=== PATIENT | female | born 1965 | race Caucasian/White ===

== ENCOUNTER 2017-12-18 17:25 | Observation (INO) | payer OTHER ==
[~2017-12-18] VITALS: Ht 167.6 cm; Wt 63.9 kg
[2017-12-18] MEDS ORDERED: IOHEXOL 350 MG/ML 10 ML VIAL (for RAD DIAG) IVCONTRAST ONE (17:26)
[2017-12-18 17:35] VITALS: BP 112/59; PULSE 68; RESP 18; TEMP 98.2; O2SAT 100
[2017-12-18] MEDS ORDERED: LEVO25TA4 PO (17:53)
[2017-12-18 18:23] LABS: AUTOMATED NEUTROPHIL # 3.5 TH/MM3 (1.8-7.7); BASOPHIL # 0.1 TH/MM3 (0-0.2); BASOPHIL % 1.1 % (0.0-2.0); EOSINOPHIL # 0.3 TH/MM3 (0-0.4); EOSINOPHIL % 4.9 % (0.0-4.0); HEMATOCRIT 36.2 % (35.0-46.0); HEMOGLOBIN 12.7 GM/DL (11.6-15.3); LYMPH % 33.3 % (9.0-44.0); LYMPHOCYTE # 2.3 TH/MM3 (1.0-4.8); MEAN CELL VOLUME 90.4 FL (80.0-100.0); MEAN CORPUSCULAR HEMOGLOBIN 31.7 PG (27.0-34.0); MEAN CORPUSCULAR HGB CONC 35.1 % (32.0-36.0); MEAN PLATELET VOLUME 8.4 FL (7.0-11.0); MONO % 8.4 % (0.0-8.0); MONOCYTE # 0.6 TH/MM3 (0-0.9); NEUT % 52.3 % (16.0-70.0); PLATELET COUNT 260 TH/MM3 (150-450); RED BLOOD COUNT 4.01 MIL/MM3 (4.00-5.30); RED CELL DISTRIBUTION WIDTH 12.2 % (11.6-17.2); WHITE BLOOD COUNT 6.8 TH/MM3 (4.0-11.0)
[2017-12-18 18:39] LABS: CHLORIDE 105 MEQ/L (98-107); SODIUM (NA) 140 MEQ/L (136-145)
[2017-12-18 18:40] VITALS: BP 103/54; PULSE 77; RESP 14; O2SAT 100
[2017-12-18 18:42] LABS: CALCIUM 9.2 MG/DL (8.5-10.1)
[2017-12-18 18:43] LABS: ALBUMIN 4.3 GM/DL (3.4-5.0); BLOOD UREA NITROGEN 11 MG/DL (7-18); GLUCOSE,RANDOM 87 MG/DL (74-106)
[2017-12-18 18:46] LABS: ALT (GPT) 19 U/L (10-53); AST (GOT) 16 U/L (15-37); CREATININE 0.66 MG/DL (0.50-1.00); GLOMERULAR FILTRATION RATE 93 ML/MIN (>89)
[2017-12-18 18:47] LABS: TOTAL BILIRUBIN ADULT 0.4 MG/DL (0.2-1.0); TOTAL PROTEIN 7.9 GM/DL (6.4-8.2)
[2017-12-18 18:49] LABS: ALKALINE PHOSPHATASE 80 U/L (45-117)
[2017-12-18 19:09] VITALS: BP 109/58; PULSE 81; RESP 18; O2SAT 100
--- NOTE | 2017-12-18 19:23 | RADRPT ---
EXAM DATE: 12/18/2017 7:05 PM EDT AGE/SEX: 52 years / Female INDICATIONS: Altered mental status. Short term memory loss. CLINICAL DATA: This is the patient's initial encounter. Patient reports that signs and symptoms have been present for 1 day and indicates a pain score of 0/10. MEDICAL/SURGICAL HISTORY: None. Appendectomy. Hernia repair. RADIATION DOSE: 51.84 CTDI (mGy) COMPARISON: No prior exams available for comparison. TECHNIQUE: CT of the head without contrast. Using automated exposure control and adjustment of the mA and/or kV according to patient size, radiation dose was kept as low as reasonably achievable to ob tain optimal diagnostic quality images. FINDINGS: Cerebrum: The ventricles are normal for age. No evidence of midline shift, mass lesion, hemorrhage or acute infarction. No extraaxial fluid collections are seen. Posterior Fossa: The cerebellum and brainstem are intact. The 4th ventricle is midline. The cerebe llopontine angle is unremarkable. Extracranial: The visualized portion of the orbits is intact. Skull: The calvaria is intact. No evidence of skull fracture. CONCLUSION: 1. No acute intracranial abnormalities. Electronically signed by: Charles Rothman MD 12/18/2017 7:22 PM EDT
[2017-12-18] MEDS ORDERED: ACETAMINOPHEN 500 MG CPLT PO ONE (19:30)
--- NOTE | 2017-12-18 19:45 | PD ---
HPI Chief Complaint: Neuro Symptoms/ Deficits Time Seen by Provider: 17:44 Travel History International Travel<30 days: No Contact w/Intl Traveler<30days: No Traveled to known affect area: No History of Present Illness HPI This is a 52-year-old female who presents to the emergency department having gotten out of the shower 45 minutes ago when she did not know where she was and had memory problems. She kept asking her over and over where she was and she did not remember what they had done earlier today. She has no weakness , numbness or difficulty with her speech. Nothing like this is never happened to her before. Her reports that she was complaining of a headache yesterday but not today. She has no history of psychiatric disease. Her only medical problem is hypothyroidism. [facility] Past Medical History Diminished Hearing: No Thyroid Disease: Yes Tetanus Vaccination: Unknown Influenza Vaccination: No ?: Not Past Surgical History Abdominal Surgery: Yes (hernia) Appendectomy: Yes Social History Alcohol Use: Yes (soc) Tobacco Use: No Substance Use: No Allergies-Medications (Allergen,Severity, Reaction): Coded Allergies: Penicillins (Verified Allergy, Severe, hives, 12/18/17) Reported Meds & Prescriptions Reported Meds & Active Scripts Active Reported Levothyroxine (Levothyroxine Sodium) 25 Mcg Tab 25 Mcg PO DAILY Review of Systems Except as stated in HPI: all other systems reviewed are Neg Physical Exam Narrative GENERAL:Well appearing, no acute distress SKIN: Focused skin assessment warm and dry. HEAD: Atraumatic. Normocephalic. EYES: Pupils equal and round. No injection or drainage. ENT: Moist mucous membranes NECK: Trachea midline. CARDIOVASCULAR: Regular rate and rhythm. No murmur appreciated. RESPIRATORY: Clear to auscultation. Breath sounds equal bilaterally. GASTROINTESTINAL: Abdomen soft, non-tender, nondistended. MUSCULOSKELETAL: No obvious deformities. NEUROLOGICAL: Awake and alert. No obvious cranial nerve deficits. No dysarthria or aphasia. No upper or lower extremity drift. No upper extremity ataxia. Visual douglas intact. Repetitive questioning. PSYCHIATRIC: Tearful Data Data Last Documented VS Vital Signs Date Time Temp Pulse Resp B/P (MAP) Pulse Ox O2 Delivery O2 Flow Rate FiO2 12/18/17 20:34 18 12/18/17 20:15 79 111/54 (73) 97 Room Air 12/18/17 17:35 98.2 Orders Orders Complete Blood Count With Diff (12/18/17 17:44) Comprehensive Metabolic Panel (12/18/17 17:44) Ct Brain W/O Iv Contrast(Rout) (12/18/17 ) Cta Brain W Iv Contrast W 3d (12/18/17 ) Cta Neck W Iv Contrast W 3d (12/18/17 ) ^ Insert Iv (12/18/17 17:44) Acetaminophen (Tylenol) (12/18/17 19:30) Iohexol 350 Inj (Omnipaque 350 Inj) (12/18/17 17:26) Admit Order (Ed Use Only) (12/18/17 20:35) Labs Laboratory Tests Test 12/18/17 18:05 White Blood Count 6.8 TH/MM3 Red Blood Count 4.01 MIL/MM3 Hemoglobin 12.7 GM/DL Hematocrit 36.2 % Mean Corpuscular Volume 90.4 FL Mean Corpuscular Hemoglobin 31.7 PG Mean Corpuscular Hemoglobin Concent 35.1 % Red Cell Distribution Width 12.2 % Platelet Count 260 TH/MM3 Mean Platelet Volume 8.4 FL Neutrophils (%) (Auto) 52.3 % Lymphocytes (%) (Auto) 33.3 % Monocytes (%) (Auto) 8.4 % Eosinophils (%) (Auto) 4.9 % Basophils (%) (Auto) 1.1 % Neutrophils # (Auto) 3.5 TH/MM3 Lymphocytes # (Auto) 2.3 TH/MM3 Monocytes # (Auto) 0.6 TH/MM3 Eosinophils # (Auto) 0.3 TH/MM3 Basophils # (Auto) 0.1 TH/MM3 CBC Comment DIFF FINAL Differential Comment Blood Urea Nitrogen 11 MG/DL Creatinine 0.66 MG/DL Random Glucose 87 MG/DL Total Protein 7.9 GM/DL Albumin 4.3 GM/DL Calcium Level 9.2 MG/DL Alkaline Phosphatase 80 U/L Aspartate Amino Transf (AST/SGOT) 16 U/L Alanine Aminotransferase (ALT/SGPT) 19 U/L Total Bilirubin 0.4 MG/DL Sodium Level 140 MEQ/L Potassium Level 3.4 MEQ/L Chloride Level 105 MEQ/L Carbon Dioxide Level 26.0 MEQ/L Anion Gap 9 MEQ/L Estimat Glomerular Filtration Rate 93 ML/MIN MDM Medical Decision Making Medical Screen Exam Complete: Yes Emergency Medical Condition: Yes Interpretation(s) EKG: Normal sinus rhythm, no ST changes No leukocytosis Mild hypokalemia Last 24 hours Impressions Neck CTA 12/18/17 0000 Signed Impressions: CONCLUSION: 1. Negative CTA carotids. Head CTA 12/18/17 0000 Signed Impressions: CONCLUSION: 1. Negative CTA brain. Head CT 12/18/17 0000 Signed Impressions: CONCLUSION: 1. No acute intracranial abnormalities. Differential Diagnosis Transient global amnesia, stroke, seizure, tumor Narrative Course This is a 52-year-old female who presents to the emergency department with anterograde amnesia that started 45 minutes prior to arrival. She has no other neurologic symptoms and she has a normal neurologic exam. She was placed in a monitor and an IV was established. Labs were obtained which were reassuring. CT and CTA were performed which was unremarkable. Patient continues to be very symptomatic in the emergency department. I did discuss the case with the neurologist who suggested if the patient's symptoms improve she could be discharged home however given the severity of her symptoms I think she requires observation. I suspect this is transient global amnesia and anticipate she should have improvement in the next 24 hours. Diagnosis Primary Impression: Transient global amnesia Admitting Information Admitting Physician Requests: Observation Nishi Darnell MD Dec 18, 2017 19:45
--- NOTE | 2017-12-18 19:52 | RADRPT ---
EXAM DATE: 12/18/2017 7:28 PM EDT AGE/SEX: 52 years / Female INDICATIONS: Altered mental status. Short term memory loss. Evaluate for occlusion. CLINICAL DATA: This is the patient's initial encounter. Patient reports that signs and symptoms have been present for 1 day and indicates a pain score of 0/10. MEDICAL/SURGICAL HISTORY: None. Appendectomy. Hernia repair. RADIATION DOSE: 42.21 CTDI (mGy) ; Combined studies COMPARISON: No prior exams available for comparison. TECHNIQUE: Volumetric scanning was performed using a multi-row detector CT scanner during bolus infu hillary of 100 ml Omnipaque 350 (iohexol) nonionic water-soluble contrast as a cumulative dose for mult iple exams. The data was post processed with a variety of visualization algorithms including full v olume maximum intensity projection, multi-planar sliding thin slab reformation, curved planar reforma tion, and surface rendering techniques. Using automated exposure control and adjustment of the mA an d/or kV according to patient size, radiation dose was kept as low as reasonably achievable to obtain optimal diagnostic quality images. FINDINGS: No stenotic or occlusive disease identified in the anterior, middle and posterior cerebral arteries. The distal basilar and internal carotid arteries are patent. CONCLUSION: 1. Negative CTA brain. Electronically signed by: Charles Rothman MD 12/18/2017 7:51 PM EDT
--- NOTE | 2017-12-18 19:54 | RADRPT ---
EXAM DATE: 12/18/2017 7:36 PM EDT AGE/SEX: 52 years / Female INDICATIONS: Altered mental status. Short term memory loss. Evaluate for occlusion. CLINICAL DATA: This is the patient's initial encounter. Patient reports that signs and symptoms have been present for 1 day and indicates a pain score of 0/10. MEDICAL/SURGICAL HISTORY: None. Appendectomy. Hernia repair. RADIATION DOSE: 42.21 CTDI (mGy) ; Combined studies COMPARISON: HPO, CTA BRAIN W 3D RECON, 12/18/2017. . TECHNIQUE: Volumetric scanning was performed using a multirow detector CT scanner during bolus infus ion of 100 ml Omnipaque 350 (iohexol) nonionic water-soluble contrast as a cumulative dose for multi ple exams. The data was postprocessed with a variety of visualization algorithms including full-vol ume maximum intensity projection, multiplanar sliding thin-slab reformation, curved-planar reformatio n, and surface-rendering techniques. Using automated exposure control and adjustment of the mA and/o r kV according to patient size, radiation dose was kept as low as reasonably achievable to obtain opt imal diagnostic quality images. Elevated flow velocities and ICA/CCA ratios have been found to correlate with increased degrees of ve ssel stenosis, calculated as percentage of diameter relative to a normal segment of distal ICA/CCA. FINDINGS: Both vertebral arteries are patent within the neck. The common carotid and internal carotid arteries are patent bilaterally. No significant atherosclerotic disease. Great vessel origins are patent. CONCLUSION: 1. Negative CTA carotids. Electronically signed by: Charles Rothman MD 12/18/2017 7:52 PM EDT
[2017-12-18 20:00] VITALS: BP 109/51; PULSE 63; RESP 20; TEMP 97.5; O2SAT 99
[2017-12-18 20:15] VITALS: BP 111/54; PULSE 79; RESP 18; O2SAT 97
[2017-12-18] MEDS ORDERED: MAGNESIUM HYDROXIDE SUSP 30 ML CUP PO PRN (20:45)
[2017-12-18] MEDS ORDERED: BISACODYL 10 MG SUPP RECTAL PRN (20:45)
[2017-12-18] MEDS ORDERED: LACTULOSE SYRUP 20 GM/30 ML CUP PO PRN (20:45)
[2017-12-18] MEDS ORDERED: SODIUM CHLORIDE 0.9% FLUSH 10 ML FLUSH IV FLUSH PRN (20:45)
[2017-12-18] MEDS ORDERED: SENNOSIDES 8.6 MG TAB PO PRN (20:45)
[2017-12-18] MEDS: SODIUM CHLOR 0.9% 1000 ML INJ 1,000 ML IV SCH (21:01)
[2017-12-18 21:04] LABS: BILIRUBIN, URINE NEG (NEG); BLOOD, URINE TRACE (NEG); GLUCOSE,URINE NEG (NEG); KETONE, URINE NEG (NEG); NITRITE,URINE NEG (NEG); URINE COLOR YELLOW (YELLW/STRAW); URINE LEUKOCYTE ESTERASE TRACE (NEG)
[2017-12-18 21:17] LABS: RBC, URINE 0-3 /hpf (0-3); SQUAMOUS EPITHELIAL CELL URINE 0-5 /hpf (0-5); WBC, URINE 0-2 /hpf (0-5)
[2017-12-18 21:24] VITALS: BP 102/64
[2017-12-18] MEDS: SODIUM CHLORIDE 0.9% FLUSH 10 ML FLUSH IV FLUSH SCH (22:07)
[2017-12-18] MEDS: DOCUSATE SODIUM 50 MG/SENNA 8.6 MG TAB PO SCH (22:07)
[2017-12-18] MEDS: ACETAMINOPHEN 325 MG TAB PO PRN (23:52)
[2017-12-19] VITALS: BP 107/52; PULSE 64; RESP 20; TEMP 97.6; O2SAT 98
[2017-12-19 04:00] VITALS: BP 106/53; PULSE 66; RESP 20; TEMP 98; O2SAT 98
[2017-12-19 07:05] VITALS: PULSE 76
[2017-12-19 07:14] LABS: AUTOMATED NEUTROPHIL # 3.3 TH/MM3 (1.8-7.7); BASOPHIL % 0.8 % (0.0-2.0); EOSINOPHIL # 0.2 TH/MM3 (0-0.4); EOSINOPHIL % 4.3 % (0.0-4.0); HEMATOCRIT 36.3 % (35.0-46.0); LYMPH % 21.2 % (9.0-44.0); MEAN CELL VOLUME 92.6 FL (80.0-100.0); MEAN CORPUSCULAR HEMOGLOBIN 30.7 PG (27.0-34.0); MEAN CORPUSCULAR HGB CONC 33.2 % (32.0-36.0); MEAN PLATELET VOLUME 7.6 FL (7.0-11.0); MONO % 8.2 % (0.0-8.0); MONOCYTE # 0.4 TH/MM3 (0-0.9); NEUT % 65.5 % (16.0-70.0); PLATELET COUNT 257 TH/MM3 (150-450); RED BLOOD COUNT 3.92 MIL/MM3 (4.00-5.30); RED CELL DISTRIBUTION WIDTH 11.9 % (11.6-17.2); WHITE BLOOD COUNT 4.9 TH/MM3 (4.0-11.0)
[2017-12-19] MEDS: SODIUM CHLOR 0.9% 1000 ML INJ 1,000 ML IV SCH (07:36)
[2017-12-19] MEDS: SODIUM CHLORIDE 0.9% FLUSH 10 ML FLUSH IV FLUSH SCH (07:36)
[2017-12-19] MEDS: DOCUSATE SODIUM 50 MG/SENNA 8.6 MG TAB PO SCH (07:37)
[2017-12-19 07:48] LABS: ALBUMIN 3.7 GM/DL (3.4-5.0); ALKALINE PHOSPHATASE 70 U/L (45-117); ALT (GPT) 16 U/L (10-53); AST (GOT) 12 U/L (15-37); BICARBONATE 29.8 MEQ/L (21.0-32.0); BLOOD UREA NITROGEN 9 MG/DL (7-18); CALCIUM 8.6 MG/DL (8.5-10.1); CHLORIDE 111 MEQ/L (98-107); CREATININE 0.66 MG/DL (0.50-1.00); GLOMERULAR FILTRATION RATE 93 ML/MIN (>89); GLUCOSE,RANDOM 92 MG/DL (74-106); SODIUM (NA) 145 MEQ/L (136-145); TOTAL BILIRUBIN ADULT 0.8 MG/DL (0.2-1.0); TOTAL PROTEIN 6.9 GM/DL (6.4-8.2); TROPONIN I LESS THAN 0.02 NG/ML (0.02-0.05)
--- NOTE | 2017-12-19 07:48 | HHI.HP ---
[facility]Staff Admission Diagnosis Transient global amnesia Diagnoses: (1) Transient global amnesia Chief Complaint: Impaired memory Travel History International Travel<30 Days: No Contact w/Intl Traveler <30 Da: No Traveled to Known Affected Are: No History of Present Illness This is a 52-year-old female patient with a known medical history of hypothyroidism who presented to the ED with complaints of memory problems and inability to recollect events. Patient states that her and her had a normal morning, was out running errands when she came home had taken a shower and shortly after getting out of the shower she called her into the room and told him she could not remember anything they did that day as well as recollect any of the events that morning. is at bedside and assisting with medical history. He states that patient did not have any speech impairment , no unilateral weakness and was able to ambulate at home. Patient denies ever having this type of forgetfulness before. Does admit to intermittent migraines , usually takes Advil for these which relieves the symptoms. Denies any recent illness including fever, chills, cough, shortness of breath, ab pain, nausea, vomiting, diarrhea os dysuria. Patient and her own a condo here in [place] and are visiting from [place], [place]. Review of Systems Constitutional: DENIES: Fatigue, Fever, Chills, Dizziness Eyes: DENIES: Blurred vision, Diplopia, Eye pain, Vision loss, Photosensitivity , Double Vision Ears, nose, mouth, throat: DENIES: Hearing loss, Oral lesions, Throat pain, Ear Pain, Sinus Pain Respiratory: DENIES: Cough, Shortness of breath Cardiovascular: DENIES: Chest pain, Palpitations, Syncope, Lower Extremity Edema Gastrointestinal: DENIES: Abdominal pain, Black stools, Bloody stools, Constipation, Diarrhea, Nausea, Vomiting Musculoskeletal: DENIES: Joint pain Hematologic/lymphatic: DENIES: Bruising Immunologic/allergic: DENIES: Eczema Neurologic: COMPLAINS OF: Headache, DENIES: Localized weakness, Paresthesias, Speech Problems, Poor Balance Psychiatric: COMPLAINS OF: Anxiety Except as stated in HPI: all other systems reviewed are Neg Past Family Social History Past Medical History History of migraines Hypothyroidism Past Surgical History Appendectomy History of hernia repair Tubal ligation Breast augmentation Right breast lumpectomy Reported Medications Active Reported Levothyroxine (Levothyroxine Sodium) 25 Mcg Tab 25 Mcg PO DAILY Allergies: Coded Allergies: Penicillins (Verified Allergy, Severe, hives, 12/18/17) Active Ordered Medications Current Medications Medications (Trade) Dose Ordered Sig/Lionel Route Start Time Stop Time Status Last Admin Sodium Chloride 1,000 ml @ 100 mls/hr Q10H IV 12/18/17 20:34 12/19/17 07:36 (NS Flush) 2 ml UNSCH PRN IV FLUSH 12/18/17 20:45 (NS Flush) 2 ml BID IV FLUSH 12/18/17 21:00 12/18/17 22:07 (Tylenol) 650 mg Q6H PRN PO 12/18/17 20:45 12/19/17 12:18 (Sherron-Colace) 1 tab BID PO 12/18/17 21:00 12/19/17 07:37 (Milk Of Magnesia Liq) 30 ml Q12H PRN PO 12/18/17 20:45 (Senokot) 17.2 mg Q12H PRN PO 12/18/17 20:45 (Dulcolax Supp) 10 mg DAILY PRN RECTAL 12/18/17 20:45 (Lactulose Liq) 30 ml DAILY PRN PO 12/18/17 20:45 (Aspirin Chew) 81 mg DAILY CHEW 12/19/17 12:00 Future Hold Family History Denies any significant family medical history. Social History Denies any tobacco, alcohol or illicit drug use. Physical Exam Vital Signs Vital Signs Date Time Temp Pulse Resp B/P (MAP) Pulse Ox O2 Delivery O2 Flow Rate FiO2 12/19/17 04:00 98.0 66 20 106/53 (70) 98 12/19/17 00:52 20 12/19/17 00:00 97.6 64 20 107/52 (70) 98 12/18/17 21:24 74 18 102/64 (77) 97 12/18/17 20:34 18 12/18/17 20:15 79 18 111/54 (73) 97 Room Air 12/18/17 20:00 97.5 63 20 109/51 (70) 99 12/18/17 19:09 81 18 100 Room Air 12/18/17 19:09 81 18 109/58 (75) 100 Room Air 12/18/17 18:40 77 14 103/54 (70) 100 Room Air 12/18/17 18:18 100 Room Air 12/18/17 17:35 98.2 68 18 112/59 (76) 100 Physical Exam GENERAL: Well-developed, well-nourished patient in NAD. SKIN: Warm and dry. No rash. HEAD: Normocephalic. Atraumatic. EYES: Pupils equal and round. No scleral icterus. No injection or drainage. ENT: No nasal bleeding or discharge. Mucous membranes pink and moist. NECK: Supple. Trachea midline. CARDIOVASCULAR: Regular rate and rhythm. S1, S2 noted. No murmur appreciated. RESPIRATORY: No accessory muscle use. Clear to auscultation. Breath sounds equal bilaterally. GASTROINTESTINAL: Abdomen soft, non-tender, nondistended. Normoactive bowel sounds x4. MUSCULOSKELETAL: No obvious deformities. Extremities without clubbing, cyanosis , or edema. NEUROLOGICAL: Awake and alert. No obvious cranial nerve deficits. Motor grossly within normal limits. 5/5 muscle strength in bilateral upper and lower extremities. Normal speech. PSYCHIATRIC: Appropriate mood and affect; insight and judgment normal. Laboratory Laboratory Tests Test 12/18/17 18:05 12/18/17 20:35 12/19/17 02:25 12/19/17 07:03 White Blood Count 6.8 4.9 Red Blood Count 4.01 3.92 Hemoglobin 12.7 12.0 Hematocrit 36.2 36.3 Mean Corpuscular Volume 90.4 92.6 Mean Corpuscular Hemoglobin 31.7 30.7 Mean Corpuscular Hemoglobin Concent 35.1 33.2 Red Cell Distribution Width 12.2 11.9 Platelet Count 260 257 Mean Platelet Volume 8.4 7.6 Neutrophils (%) (Auto) 52.3 65.5 Lymphocytes (%) (Auto) 33.3 21.2 Monocytes (%) (Auto) 8.4 8.2 Eosinophils (%) (Auto) 4.9 4.3 Basophils (%) (Auto) 1.1 0.8 Neutrophils # (Auto) 3.5 3.3 Lymphocytes # (Auto) 2.3 1.0 Monocytes # (Auto) 0.6 0.4 Eosinophils # (Auto) 0.3 0.2 Basophils # (Auto) 0.1 0.0 CBC Comment DIFF FINAL DIFF FINAL Differential Comment Blood Urea Nitrogen 11 Creatinine 0.66 Random Glucose 87 Total Protein 7.9 Albumin 4.3 Calcium Level 9.2 Alkaline Phosphatase 80 Aspartate Amino Transf (AST/SGOT) 16 Alanine Aminotransferase (ALT/SGPT) 19 Total Bilirubin 0.4 Sodium Level 140 Potassium Level 3.4 Chloride Level 105 Carbon Dioxide Level 26.0 Anion Gap 9 Estimat Glomerular Filtration Rate 93 Urine Color YELLOW Urine Turbidity CLEAR Urine pH 6.0 Urine Specific [place] LESS/EQUAL 1.005 Urine Protein NEG Urine Glucose (UA) NEG Urine Ketones NEG Urine Occult Blood TRACE Urine Nitrite NEG Urine Bilirubin NEG Urine Urobilinogen 0.2 Urine Leukocyte Esterase TRACE Urine RBC 0-3 Urine WBC 0-2 Urine Squamous Epithelial Cells 0-5 Microscopic Urinalysis Comment CULT NOT INDICATED Urine Opiates Screen NEG Urine Barbiturates Screen NEG Urine Amphetamines Screen NEG Urine Benzodiazepines Screen NEG Urine Cocaine Screen NEG Urine Cannabinoids Screen NEG Troponin I LESS THAN 0.02 Result Diagram: 12/19/17 0703 12/18/17 1805 Imaging Last Impressions Neck CTA 12/18/17 0000 Signed Impressions: CONCLUSION: 1. Negative CTA carotids. Head CTA 12/18/17 0000 Signed Impressions: CONCLUSION: 1. Negative CTA brain. Head CT 12/18/17 0000 Signed Impressions: CONCLUSION: 1. No acute intracranial abnormalities. Septic Shock Reassessment Septic shock perfusion: reassessment completed Caprini VTE Risk Assessment Caprini VTE Risk Assessment: No/Low Risk (score <= 1) Caprini Risk Assessment Model Point Value = 1 Point Value = 2 Point Value = 3 Point Value = 5 Age 41-60 Minor surgery BMI > 25 kg/m2 Swollen legs Varicose veins or History of unexplained or recurrent spontaneous Oral contraceptives or hormone replacement Sepsis (< 1 month) Serious lung disease, including pneumonia (< 1 month) Abnormal pulmonary function Acute myocardial infarction Congestive heart failure (< 1 month) History of inflammatory bowel disease Medical patient at bed rest Age 61-74 Arthroscopic surgery Major open surgery (> 45 min) Laparoscopic surgery (> 45 min) Malignancy Confined to bed (> 72 hours) Immobilizing plaster cast Central venous access Age >= 75 History of VTE Family history of VTE Factor V Leiden Prothrombin [id number] Lupus anticoagulant Anticardiolipin antibodies Elevated serum homocysteine Heparin-induced thrombocytopenia Other congenital or acquired thrombophilia Stroke (< 1 month) Elective arthroplasty Hip, pelvis, or leg fracture Acute spinal cord injury (< 1 month) Prophylaxis Regimen Total Risk Factor Score Risk Level Prophylaxis Regimen 0-1 Low Early ambulation 2 Moderate Order ONE of the following: *Sequential Compression Device (SCD) *Heparin 5000 units SQ BID 3-4 Higher Order ONE of the following medications: *Heparin 5000 units SQ TID *Enoxaparin/Lovenox 40 mg SQ daily (WT < 150 kg, CrCl > 30 mL/min) *Enoxaparin/Lovenox 30 mg SQ daily (WT < 150 kg, CrCl > 10-29 mL/min) *Enoxaparin/Lovenox 30 mg SQ BID (WT < 150 kg, CrCl > 30 mL/min) AND/OR *Sequential Compression Device (SCD) 5 or more Highest Order ONE of the following medications: *Heparin 5000 units SQ TID (Preferred with Epidurals) *Enoxaparin/Lovenox 40 mg SQ daily (WT < 150 kg, CrCl > 30 mL/min) *Enoxaparin/Lovenox 30 mg SQ daily (WT < 150 kg, CrCl > 10-29 mL/min) *Enoxaparin/Lovenox 30 mg SQ BID (WT < 150 kg, CrCl > 30 mL/min) AND *Sequential Compression Device (SCD) Assessment and Plan Problem List: (1) Transient global amnesia ICD Code: G45.4 - Transient global amnesia Status: Acute Assessment and Plan This is a 52-year-old female patient with a known medical history of hypothyroidism who presented to the ED with complaints of memory problems and inability to recollect events. Patient states that her and her had a normal morning, was out running errands when she came home had taken a shower and shortly after getting out of the shower she called her into the room and told him she could not remember anything they did that day as well as recollect any of the events that morning. Transient global amnesia - Head CT/neck and head CTA negative upon presentation. - Spoke with neurologist, Dr. Jones, who recommends MRI of the brain. Awaiting results. Also wants patient to follow up with in [place] to obtain an EEG. Patient educated regarding avoiding driving and swimming until seizures ruled out. Will add Aspirin daily if MRI negative. - Ensure hydration, continue IV fluids. No dysphagia noted. No unilateral weakness. - Continue neuro checks. Continue cardiac telemetry, monitor for any arrhythmias. - Patient is ambulating well. All symptoms have resolved. - CBC and BMP reviewed, essentially unremarkable. Troponins flat. - EKG reviewed showing sinus rhythm with incomplete right bundle branch block, controlled heart rate, no ST changes. Hypothyroidism, chronic: We will continue home levothyroxine. Check TSH level. DVT prophylaxis: SCDs. Discharge patient to home. Condition on discharge: Improved. Regular Diet as tolerated. Ad Azul activity. Rx written: See DC instructions. Follow-up with primary care physician. Jessica Lemus Dec 19, 2017 07:48
[2017-12-19 07:50] VITALS: BP 107/53; PULSE 68; RESP 20; TEMP 98; O2SAT 97
[2017-12-19 11:50] VITALS: BP 100/51; PULSE 65; RESP 20; TEMP 97.5; O2SAT 99
[2017-12-19] MEDS ORDERED: ASPIRIN 81 MG CHEW TAB CHEW SCH (12:00)
[2017-12-19] MEDS: ACETAMINOPHEN 325 MG TAB PO PRN (12:18)
--- NOTE | 2017-12-19 12:39 | EKG ---
Date Performed: 12/18/2017 Time Performed: 17:43:47 PTAGE: 52 years EKG: Sinus rhythm INCOMPLETE RIGHT BUNDLE BRANCH BLOCK BORDERLINE ECG NO PREVIOUS TRACING DOCTOR: Austyn Land Interpretating Date/Time 12/19/2017 12:36:38
[2017-12-19] MEDS ORDERED: ASPI81 CHEW (12:44)
--- NOTE | 2017-12-19 12:45 | HHI.DCPOC ---
Discharge Care Plan Diagnosis: (1) Transient global amnesia Goals to Promote Your Health * To prevent worsening of your condition and complications * To maintain your health at the optimal level Directions to Meet Your Goals Take your medications as prescribed Follow your dietary instruction Follow activity as directed Keep your appointments as scheduled Take your immunizations and boosters as scheduled If your symptoms worsen call your PCP, if no PCP go to Urgent Care Center or Emergency Room Smoking is Dangerous to Your Health. Avoid second hand smoke Call the 24-hour hour crisis hotline for domestic abuse at Jessica Lemus Dec 19, 2017 12:45
[2017-12-19] MEDS ORDERED: GADODIAMIDE PF 287 MG/ML 20 ML VIAL (for RAD MRI) IVCONTRAST ONE (14:05)
[2017-12-19 15:50] VITALS: BP 105/52; PULSE 72; RESP 20; TEMP 98; O2SAT 98
--- NOTE | 2017-12-19 17:25 | RADRPT ---
EXAM DATE: 12/19/2017 2:23 PM EDT AGE/SEX: 52 years / Female INDICATIONS: . Memory loss. Right facial pain. CLINICAL DATA: This is the patient's initial encounter. Patient reports that signs and symptoms have been present for 1 day and indicates a pain score of 0/10. MEDICAL/SURGICAL HISTORY: None. Appendectomy. Inguinal hernia repair. Tubal ligation. COMPARISON: No prior exams available for comparison. TECHNIQUE: Multiplanar, multisequence examination of the brain was performed without and with 12 ml O mniscan (gadodiamide) contrast as a single exam dose. FINDINGS: No intracranial mass or midline shift. No hydrocephalus. No abnormal extra-axial fluid collections ar e present. There is no evidence for recent infarction on the diffusion weighted images. No abnormal e nhancing lesions are identified postcontrast. Globes are intact. CONCLUSION: 1. Unremarkable MRI brain. Typically no recent infarct. No mass or shift. Electronically signed by: Charles Rothman MD 12/19/2017 5:23 PM EDT
== END 2017-12-19 17:54 | disposition home or self-care (01) ==
LOC: PHED 17:25 → PHEDA 20:35 → PH3A 21:15
PROVIDERS: ADMIT Hospitalist; ATTEND Hospitalist
DX: G45.4 Transient global amnesia (principal); G43.909 Migraine, unspecified, not intractable, without status migrainosus; R94.31 Abnormal electrocardiogram [ECG] [EKG]; I45.10 Unspecified right bundle-branch block; E03.9 Hypothyroidism, unspecified
CPT/HCPCS: 70450; 70496; 70498; 70553; 80053; 80307; 81001; 84439; 84443; 84484; 85025; 93005; 96360; 96361; 99285; A9579; G0378; J7030; Q9967